=== PATIENT | female | born 1995 | race Caucasian/White ===

== ENCOUNTER 2022-03-10 23:35 | Emergency (ER) | payer OTHER ==
[~2022-03-10 23:35] MED LIST: ACETAMINOPHEN325 MG PO; COLACE100 MG PO; MOTRIN600 MG PO; PRENATAL FORMU1 EACH PO; ZOLOFT50 MG PO
[2022-03-11 00:45] LABS: INFLUENZA A NAA NEGATIVE (NEGATIVE)
[2022-03-11 00:52] LABS: CORONAVIRUS 2019 SARS-COV-2 POSITIVE (NEGATIVE)
[2022-03-11] MEDS ORDERED: PAXLOVID CO-PA1 EAC1 PO (01:07)
== END 2022-03-11 01:12 | disposition home or self-care (01) ==
LOC: FER 23:35
PROVIDERS: Emergency Medicine
DX: U07.1 COVID-19 (principal); Z88.0 Allergy status to penicillin
CPT/HCPCS: 99283; U0002